=== PATIENT | male | born 1945 ===

== ENCOUNTER 2023-09-27 16:27 | Emergency (ER) | payer OTHER ==
[~2023-09-27] VITALS: Ht 182.9 cm; Wt 99.7 kg
[~2023-09-27 16:27] MED LIST: AMOX/K CLAV875 M1 PO
[2023-09-27 17:05] LABS: BASO% 0.5 % (0-3); EOS% 4.5 % (0-8); HEMATOCRIT 42.8 % (39.0-50.0); HEMOGLOBIN 14.9 g/dl (14.0-18.0); IMMATURE GRANULOCYTES 0.1 % (0.0-5.0); LYMPH% 22.4 % (15-41); MEAN CELL VOLUME 86.6 fL CALC (80.0-100.0); MEAN CORPUSCULAR HGB 30.2 pG CALC (26.0-32.0); MEAN CORPUSCULAR HGB CONC 34.8 g/dL CAL (32.0-36.0); MONO% 8.8 % (2-13); NEUT# 5.29 thou/uL (1.82-7.42); NEUT% 63.7 % (42-76); RED BLOOD COUNT 4.94 mill/uL (4.70-6.10); RED CELL DISTRI WIDTH 12.3 % (11.5-15.5)
[2023-09-27 17:16] LABS: INTERNATIONAL NORMALIZED RATIO 1.2 RATIO (0.7-1.3)
[2023-09-27 17:18] LABS: ALBUMIN 4.2 g/dL (3.2-5.0); ALKALINE PHOSPHATASE 74 u/l (38-126); ANION GAP 12 (6-22 (CALC)); BILIRUBIN, TOTAL 0.7 mg/dL (0.2-1.3); BUN 16 mg/dL (8-23); BUN/CREATININE RATIO 13 (12-20 (CALC)); CARBON DIOXIDE 24 mmol/l (22-30); CHLORIDE 108 mmol/l (95-108); CREATININE 1.2 mg/dL (0.7-1.3); GFR FOR AFR.AMER. > 60 ML/MIN (>=60 (CALC)); GFR OTHER RACES 59 ML/MIN (>=60 (CALC)); POTASSIUM 3.8 mmol/l (3.5-5.1); SGOT/AST 32 u/l (19-48); SODIUM 141 mmol/l (137-146); TOTAL PROTEIN 7.3 g/dL (6.3-8.2)
[2023-09-27 18:44] VITALS: BP 144/83
== END 2023-09-27 19:10 | disposition home or self-care (01) | DRG 379 ==
LOC: ED 16:27
PROVIDERS: Family Medicine
DX: K92.1 Melena (principal)

== ENCOUNTER 2023-10-02 15:30 | Emergency (ER) | payer OTHER, MEDICARE ==
[~2023-10-02] VITALS: Ht 182.9 cm; Wt 90.0 kg
[2023-10-02 16:10] LABS: BASO% 0.3 % (0-3); EOS% 4.9 % (0-8); HEMATOCRIT 44.4 % (39.0-50.0); HEMOGLOBIN 15.3 g/dl (14.0-18.0); IMMATURE GRANULOCYTES 0.2 % (0.0-5.0); LYMPH% 21.8 % (15-41); MEAN CELL VOLUME 87.9 fL CALC (80.0-100.0); MEAN CORPUSCULAR HGB 30.3 pG CALC (26.0-32.0); MEAN CORPUSCULAR HGB CONC 34.5 g/dL CAL (32.0-36.0); MONO% 9.8 % (2-13); NEUT# 5.73 thou/uL (1.82-7.42); RED BLOOD COUNT 5.05 mill/uL (4.70-6.10); RED CELL DISTRI WIDTH 12.4 % (11.5-15.5)
[2023-10-02 16:23] LABS: ALBUMIN 4.3 g/dL (3.2-5.0); ALKALINE PHOSPHATASE 68 u/l (38-126); ANION GAP 12 (6-22 (CALC)); BILIRUBIN, TOTAL 0.9 mg/dL (0.2-1.3); BUN 15 mg/dL (8-23); BUN/CREATININE RATIO 12 (12-20 (CALC)); CARBON DIOXIDE 26 mmol/l (22-30); CHLORIDE 107 mmol/l (95-108); CREATININE 1.2 mg/dL (0.7-1.3); GFR FOR AFR.AMER. > 60 ML/MIN (>=60 (CALC)); GFR OTHER RACES 59 ML/MIN (>=60 (CALC)); POTASSIUM 4.2 mmol/l (3.5-5.1); SGOT/AST 33 u/l (19-48); SODIUM 140 mmol/l (137-146); TOTAL PROTEIN 7.3 g/dL (6.3-8.2)
[2023-10-02 16:58] VITALS: BP 119/74
== END 2023-10-02 17:17 | disposition home or self-care (01) | DRG 379 ==
LOC: ED 15:30
PROVIDERS: Family Medicine
DX: K92.1 Melena (principal)

== ENCOUNTER 2024-02-23 14:10 | Emergency (ER) | payer OTHER, MEDICARE ==
[~2024-02-23] VITALS: Ht 182.9 cm; Wt 102.0 kg
[~2024-02-23 14:10] MED LIST changes: +MECLIZINE 2525 MG PO
[2024-02-23 14:18] VITALS: BP 155/83
[2024-02-23] MEDS ORDERED: DEXAMETHASONE SOD. PHOSPHATE 10 MG/ML VIAL IV ONE (14:25)
[2024-02-23] MEDS ORDERED: KETOROLAC TROMETHAMINE 30 MG/ML SDV IV ONE (14:25)
[2024-02-23 14:48] LABS: BASO% 0.2 % (0-3); EOS% 2.4 % (0-8); HEMATOCRIT 40.7 % (39.0-50.0); HEMOGLOBIN 13.6 g/dl (14.0-18.0); IMMATURE GRANULOCYTES 0.5 % (0.0-5.0); LYMPH% 14.2 % (15-41); MEAN CELL VOLUME 86.8 fL CALC (80.0-100.0); MEAN CORPUSCULAR HGB CONC 33.4 g/dL CAL (32.0-36.0); MONO% 12.2 % (2-13); NEUT# 7.96 thou/uL (1.82-7.42); NEUT% 70.5 % (42-76); RED BLOOD COUNT 4.69 mill/uL (4.70-6.10)
[2024-02-23 14:59] LABS: CREATININE 1.2 mg/dL (0.7-1.3)
[2024-02-23] MEDS ORDERED: COLCHICINE 0.6 MG/TAB PO ONE ×2 (15:30)
[2024-02-23] MEDS ORDERED: MITIGARE0.6 MG PO (15:30)
[2024-02-23 15:34] VITALS: BP 155/83
== END 2024-02-23 15:46 | disposition home or self-care (01) | DRG 554 ==
LOC: ED 14:10
PROVIDERS: Family Medicine
DX: M10.072 Idiopathic gout, left ankle and foot (principal); I48.91 Unspecified atrial fibrillation; Z86.73 Personal history of transient ischemic attack (TIA), and cerebral infarction without residual deficits

== ENCOUNTER 2024-11-08 14:33 | Emergency (ER) | payer OTHER, MEDICARE ==
[2024-11-08] VITALS (16 sets, daily range): BP systolic 104–148; BP diastolic 64–80
[~2024-11-08] VITALS: Ht 182.9 cm; Wt 98.0 kg
[~2024-11-08 14:33] MED LIST changes: +MITIGARE0.6 MG PO
[2024-11-08] MEDS ORDERED: KETOROLAC TROMETHAMINE 15 MG/ML SDV IV STA (15:29)
[2024-11-08] MEDS ORDERED: SODIUM CHLORIDE 0.9% 1,000 ML IV STA (15:29)
[2024-11-08] MEDS ORDERED: ONDANSETRON HCl 4 MG/2 ML SDV IV STA (15:29)
[2024-11-08 15:32] LABS: BASO% 0.1 % (0-3); EOS% 0.3 % (0-8); HEMATOCRIT 38.8 % (39.0-50.0); IMMATURE GRANULOCYTES 0.3 % (0.0-5.0); LYMPH% 2.2 % (15-41); MEAN CELL VOLUME 84.5 fL CALC (80.0-100.0); MEAN CORPUSCULAR HGB 28.3 pG CALC (26.0-32.0); MEAN CORPUSCULAR HGB CONC 33.5 g/dL CAL (32.0-36.0); MONO% 6.7 % (2-13); NEUT# 19.13 thou/uL (1.82-7.42); NEUT% 90.4 % (42-76); RED BLOOD COUNT 4.59 mill/uL (4.70-6.10); RED CELL DISTRI WIDTH 15.3 % (11.5-15.5)
[2024-11-08 15:46] LABS: ALBUMIN 3.8 g/dL (3.2-5.0); CREATININE 1.5 mg/dL (0.7-1.3)
[2024-11-08 15:53] LABS: BILIRUBIN, TOTAL 7.8 mg/dL (0.2-1.3)
[2024-11-08 18:08] LABS: URINE BLOOD DIPSTICK Negative (NEGATIVE); URINE COLOR Amber; URINE GLUCOSE - DIPSTICK 100 mg/dL (NEGATIVE); URINE KETONE Trace mg/dL (NEGATIVE); URINE LEUK ESTERASE Negative (NEGATIVE); URINE NITRITE - DIPSTICK Negative (Negative); URINE PROTEIN - DIPSTICK 100 mg/dL (NEG-TRACE); URINE UROBILINOGEN - DIPSTICK >=8.0 E.U./dL (0.2)
[2024-11-08] MEDS ORDERED: AMLODIPINE BESY10 MG PO (18:09)
[2024-11-08] MEDS ORDERED: ELIQUIS5 MG PO (18:09)
[2024-11-08] MEDS ORDERED: TAMSULOSIN0.4 MG PO (18:12)
[2024-11-08] MEDS ORDERED: OMEPRAZOLE DR20 M2 (18:13)
[2024-11-08 18:19] LABS: URINE RENAL EPITHELIAL CELLS FEW hpf; URINE TRANSITIONAL EPI. CELLS FEW hpf
== END 2024-11-08 21:40 | DRG 445 ==
LOC: ED 14:33
PROVIDERS: Nurse Practitioner
DX: K80.20 Calculus of gallbladder without cholecystitis without obstruction (principal); K57.32 Diverticulitis of large intestine without perforation or abscess without bleeding; E80.6 Other disorders of bilirubin metabolism; I48.91 Unspecified atrial fibrillation; Z86.73 Personal history of transient ischemic attack (TIA), and cerebral infarction without residual deficits
CPT/HCPCS: J0744; J1836; J1885; J2405; Q9967

== ENCOUNTER 2024-11-15 22:05 | Emergency (ER) | payer OTHER, MEDICARE ==
[~2024-11-15] VITALS: Ht 182.9 cm; Wt 99.8 kg
[~2024-11-15 22:05] MED LIST changes: +AMLODIPINE BESY10 MG PO; +ELIQUIS5 MG PO; +OMEPRAZOLE DR20 M2; +TAMSULOSIN0.4 MG PO
[2024-11-15 22:15] VITALS: BP 132/75
[2024-11-15] MEDS ORDERED: ONDANSETRON HCl 4 MG/2 ML SDV IV ONE (22:20)
[2024-11-15] MEDS ORDERED: MORPHINE SULFATE 4 MG/ML VIAL IV ONE (22:20)
[2024-11-15 22:30] VITALS: BP 131/76
[2024-11-15 22:45] VITALS: BP 118/74
[2024-11-15 22:51] LABS: BASO% 0.2 % (0-3); EOS% 1.1 % (0-8); HEMATOCRIT 34.5 % (39.0-50.0); HEMOGLOBIN 11.2 g/dl (14.0-18.0); IMMATURE GRANULOCYTES 1.5 % (0.0-5.0); LYMPH% 9.2 % (15-41); MEAN CELL VOLUME 86.5 fL CALC (80.0-100.0); MEAN CORPUSCULAR HGB 28.1 pG CALC (26.0-32.0); MEAN CORPUSCULAR HGB CONC 32.5 g/dL CAL (32.0-36.0); MONO% 5.1 % (2-13); NEUT# 14.45 thou/uL (1.82-7.42); NEUT% 82.9 % (42-76); RED BLOOD COUNT 3.99 mill/uL (4.70-6.10); RED CELL DISTRI WIDTH 15.9 % (11.5-15.5)
[2024-11-15 22:58] LABS: ALBUMIN 3.5 g/dL (3.2-5.0); CREATININE 1.1 mg/dL (0.7-1.3); POTASSIUM 3.9 mmol/l (3.5-5.1); TOTAL PROTEIN 6.5 g/dL (6.3-8.2)
[2024-11-15 23:00] VITALS: BP 122/73
[2024-11-15 23:15] VITALS: BP 122/72
[2024-11-16] MEDS ORDERED: PIPERACILLIN Sodium-Tazobactam 3.375 GM in SODIUM CHLORIDE 0.9% 100 ML IV ONE (00:15)
[2024-11-16] MEDS ORDERED: MORPHINE SULFATE 4 MG/ML VIAL IV ONE (01:45)
[2024-11-16] MEDS ORDERED: ONDANSETRON HCl 4 MG/2 ML SDV IV ONE (01:50)
[2024-11-16 02:10] LABS: URINE BLOOD DIPSTICK Negative (NEGATIVE); URINE COLOR Dark yellow; URINE GLUCOSE - DIPSTICK Negative (NEGATIVE); URINE KETONE Negative (NEGATIVE); URINE LEUK ESTERASE Negative (NEGATIVE); URINE NITRITE - DIPSTICK Negative (Negative); URINE PROTEIN - DIPSTICK Trace mg/dL (NEG-TRACE); URINE SPECIFIC GRAVITY 1.015
[2024-11-16 03:30] VITALS: BP 125/73
== END 2024-11-16 03:30 | disposition short-term general hospital (02) | DRG 921 ==
LOC: ED 22:05
PROVIDERS: Family Medicine
DX: T81.9XXA Unspecified complication of procedure, initial encounter (principal); Y83.6 Removal of other organ (partial) (total) as the cause of abnormal reaction of the patient, or of later complication, without mention of misadventure at the time of the procedure; I48.91 Unspecified atrial fibrillation; Z90.49 Acquired absence of other specified parts of digestive tract; Z87.891 Personal history of nicotine dependence; Z96.89 Presence of other specified functional implants
CPT/HCPCS: J2405; J2543; Q9967